=== PATIENT | male | born 1995 | race Two or more races ===

== ENCOUNTER 2017-04-03 13:17 | Emergency (ER) | payer OTHER ==
[~2017-04-03] VITALS: Ht 182.9 cm; Wt 66.7 kg
[~2017-04-03 13:17] MED LIST: ALLEGRA D PO; AMOX1TAB12 PO; CLARITIN-D 121 EACH PO; DOLOGESIC-DF 51 EACH PO; MUCINEX D1 TAB.SR . PO; MUCINEX1200 MG/BO PO; NASONEX17 GM NS; ORASEP SPRAY30 ML MM; SINGULAIR 4MG4 MG PO; ZITHROMAX TRI-500 MG PO; ZITHROMAX500 MG PO; ZYRTEC1 MG/ML; [UNRECOGNIZED DRUG - CODE]
== END 2017-04-03 16:28 | disposition home or self-care (01) ==
LOC: ER 13:17
DX: K52.89 Other specified noninfective gastroenteritis and colitis (principal)

== ENCOUNTER 2017-04-22 06:18 | Emergency (ER) | payer OTHER ==
[~2017-04-22] VITALS: Ht 182.9 cm; Wt 66.7 kg
[2017-04-22] MEDS ORDERED: ZITHROMAX500 MG PO (07:32)
[2017-04-22] MEDS ORDERED: KETO10TA2 PO (07:32)
== END 2017-04-22 07:46 | disposition home or self-care (01) ==
LOC: ER 06:18
DX: J03.90 Acute tonsillitis, unspecified (principal)

== ENCOUNTER 2017-11-08 21:23 | Emergency (ER) | payer OTHER ==
[~2017-11-08] VITALS: Ht 182.9 cm; Wt 65.3 kg
[~2017-11-08 21:23] MED LIST changes: +KETO10TA2 PO
[2017-11-09] MEDS ORDERED: PHENERGAN25 MG PO (05:11)
[2017-11-09] MEDS ORDERED: PEPCID40 MG PO (05:11)
[2017-11-09] MEDS ORDERED: LEVSIN/SL0.125 MG SL (05:11)
== END 2017-11-09 05:34 | disposition home or self-care (01) ==
LOC: ER 21:23
DX: K52.9 Noninfective gastroenteritis and colitis, unspecified (principal)